=== PATIENT | female | born 1985 | race Caucasian/White ===

== ENCOUNTER 2018-09-04 15:54 | Emergency (ER) | payer OTHER ==
--- NOTE | 2018-09-04 16:42 | EDPHY ---
H & P Stated Complaint: LLQ and left side pain intermittent since 0100 with nausea Time Seen by Provider: 09/04/18 16:42 HPI/ROS: CHIEF COMPLAINT: Chest pain, back pain HISTORY OF PRESENT ILLNESS: The patient is a 33 y/o female complaining of recurrent episodes of chest and back pain over the last few days that became severe today. She says, "I've been having what I thought was on and off chest pain through to my back." She attributed her symptoms initially to stress related to the recent of a close friend. She saw her PCP who thought symptoms could be gas, constipation, or a muscle spasm so the patient took "prune juice to flush my system." She woke at 01:00 this morning, about 16 hours ago, with the same pain but now severe. She tried treating with icy hot, ibuprofen, positional changes like lying supine or in the position, and stretching in a hot shower. Her pain is much worse with movement. Throughout the day her pain has waxed and waned and been associated with severe waves of nausea and abdominal cramping with the urge to defecate. She had one small bowel movement at noon that was not loose nor bloody. Her last normal bowel movement was yesterday morning and she denies feeling constipated. She notes she 's been eating and drinking less over the last few days. No urinary symptoms. At times when the pain was most severe, she had to lie on her office floor for extended periods of time and at other times "standing up is just insufferable." She currently feels shaky. She reports a similar transient episode 1 or 2 years ago that was short-lived and she never sought evaluation for. Her last menstrual period was 3 weeks ago and is usually normal. She is sexually active, not on control, and identifies as escudero. REVIEW OF SYSTEMS: A ten system review of systems was performed and is negative with the exception of the items mentioned in the HPI. Past medical history: Environmental allergies Past surgical history: Endoscopy for acid reflux (has since resolved) Family history: Noncontributory Social history: Elementary school counselor, previously a teacher. Moved here in June from [place]. Identifies as escudero. Nonsmoker. Very rare alcohol use. General Appearance: Alert. Vital signs reviewed. Blood pressure 135/90. Eyes: Pupils equal and round, no conjunctival injection, no discharge. Anicteric. ENT, Mouth: Mucous membranes are moist, no oropharyngeal erythema or edema. Neck: No lymphadenopathy, supple. Respiratory: Lungs are clear to auscultation; no wheezes, rales, or rhonchi. Cardiovascular: Regular rate and rhythm; no murmur, rub, or gallop. Gastrointestinal: Abdomen is soft, LLQ tenderness, no masses or organomegaly. Skin: Warm and dry, no rashes on exposed skin, normal color. Back: Nontender to palpation over the thoracolumbar spine. Left lower flank tenderness. Extremities: No lower extremity edema, no calf tenderness or swelling. Neurological: Alert and oriented. Moving all four extremities easily and equally. Psychiatric: Normal affect. - Personal History LMP (Females 10-55): 22-28 Days Ago Current Tetanus Diphtheria and Acellular Pertussis (TDAP): Yes - Medical/Surgical History Hx Asthma: Yes Hx Chronic Respiratory Disease: No Hx Diabetes: No Hx Cardiac Disease: No Hx Renal Disease: No Hx Cirrhosis: No Hx Alcoholism: No Hx HIV/AIDS: No Hx Splenectomy or Spleen Trauma: No Other PMH: asthma - Social History Smoking Status: Never smoked Constitutional: Initial Vital Signs Temperature (C) 36.7 C 09/04/18 16:07 Heart Rate 83 09/04/18 16:07 Respiratory Rate 16 09/04/18 16:07 Blood Pressure 145/90 H 09/04/18 16:07 O2 Sat (%) 99 09/04/18 16:07 O2 Delivery Mode Room Air Allergies/Adverse Reactions: azithromycin Allergy (Verified 09/04/18 16:06) Home Medications: Medication Instructions Recorded Claritin 09/04/18 oxyCODONE/APAP 5/325 [Percocet 1 - 2 tab PO Q4H PRN #15 tab 09/04/18 5/325 (RX)] Medical Decision Making - Diagnostics Imaging: Discussed imaging studies w/ call center assistant Radiologist, I viewed and interpreted images myself ED Course/Re-evaluation: Patient with left lower abdomen and left flank pain. Differential diagnosis includes ureterolithiasis, UTI, pyelonephritis, diverticulitis, muscular pain. CBC, chemistries, and UA are within normal limits. Urinalysis shows ketones, no blood or signs of infection. This rules out UTI and pyelonephritis. Patient received Toradol 15 mg IV. She did have some pain relief with this medication. I spoke with her about the blood work and urinalysis. She would like to undergo CT scanning of her abdomen and pelvis to assess for kidney stone. This test has been ordered. CT shows 6.3x5.7 left adnexal dermoid. Pelvic US ordered to rule out torsion Reassessed patient and discussed findings. She had some improvement in pain, but continues to be uncomfortable. Additional 15mg IV Toradol ordered. Pelvic US: negative for torsion, left dermoid tumor. 2006: Consulted with CB Castañeda. She will see her as an outpatient Friday or Friday. Reassessed patient and discussed findings. She will be discharged with script for Percocet and standard care and follow up instructions. Return precautions discussed. She is comfortable with this plan. Differential Diagnosis: I considered a ddx that includes but is not limited to ovarian torsion, ovarian cyst, dermoid, ectopic , UTI, pyelonephritis, ureteral stone, diverticulitis, constipation. - Data Points Laboratory Results: Laboratory Results 09/04/18 16:40 09/04/18 16:40 Medications Given: Discontinued Medications Sodium Chloride (Ns) 1,000 mls @ 0 mls/hr IV EDNOW ONE; Wide Open PRN Reason: Protocol Stop: 09/04/18 17:22 Last Admin: 09/04/18 17:21 Dose: 1,000 mls Ketorolac Tromethamine (Toradol) 15 mg IVP EDNOW ONE Stop: 09/04/18 17:22 Last Admin: 09/04/18 17:40 Dose: 15 mg Ketorolac Tromethamine (Toradol) 15 mg IVP EDNOW ONE Stop: 09/04/18 18:51 Last Admin: 09/04/18 18:57 Dose: 15 mg Departure - Departure Disposition: Home, Routine, Self-Care Clinical Impression: Dermoid cyst Condition: Good Instructions: Cyst (ED) Additional Instructions: 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 Follow up with CB Castañeda, early next week. I recommend calling first thing Friday morning to schedule this appointment. Tell them you were seen in the ED today and Dr. Walker was consulted. Return to the ED for any worsening of condition. Use Tylenol and ibuprofen as directed below as needed for pain. You received a medication similar to ibuprofen today in the ED, so you should wait to take another dose until tomorrow. Do not combine Tylenol with Perocet as Percocet contains the active ingredient of Tylenol (acetaminophen). Use Percocet as needed for severe pain. This medication can make you drowsy and constipated. Do not use prior to driving. Take constipation precautions while using it (increase fluid and fiber intake, use Miralax as directed on packaging if needed). Adult Pain & Fever Control: We recommend Acetaminophen (Tylenol) and Ibuprofen (Motrin,Advil) for pain and fever control. When fever is high or pain severe, both drugs can be used at the same time, but at different intervals. Please note the time differences. Your dose is: Acetaminophen 650mg every 4 to 6 hours Ibuprofen 600mg every 8 hours with food Note: do not take Acetaminophen with Hydrocodone (Vicodin, Lortab) or Oxycodone (Percocet). These medications also contain Acetaminophen. No more than 3000mg of Acetaminophen should be taken in 24 hours (for an adult). Referrals: Arabella Shelton MD [Primary Care Provider] - As per Instructions Pratibha Walker DO [Doctor of Osteopathy] - As per Instructions Prescriptions: oxyCODONE/APAP 5/325 [Percocet 5/325 (RX)] 1 - 2 tab PO Q4H PRN #15 tab PRN Reason: Pain, Severe Report Scribed for: Anni Eldridge Report Scribed by: Abril Mckeon Date of Report: 09/04/18 Time of Report: 18:48 Physician Review and Approval Statement: 09/04/18 16:42 Portions of this note were transcribed by the medical delivery driver. I, Dr. Anni Eldridge, personally performed the history, physical exam, and medical decision- making; and confirmed the accuracy of the information in the transcribed note.
[2018-09-04] MEDS ORDERED: KETOROLAC 30 MG/1 ML SDV IVP ONE ×2 (17:21→18:50)
[2018-09-04] MEDS ORDERED: NS 1,000 ML IV ONE (17:21)
[2018-09-04 17:27] LABS: PLATELET COUNT 427 10^3/uL (150-400)
[2018-09-04] MEDS ORDERED: IOPAMIDOL (ISOVUE-300) 100 ML BTL ONE (18:13)
[2018-09-04 20:30] VITALS: BP 129/76
== END 2018-09-04 20:28 | disposition home or self-care (01) ==
DX: R19.09 Other intra-abdominal and pelvic swelling, mass and lump (principal); E86.9 Volume depletion, unspecified; J45.909 Unspecified asthma, uncomplicated
CPT/HCPCS: 96374; J1885; Q9967

== ENCOUNTER 2018-09-10 12:00 | Observation (INO) | payer OTHER ==
--- NOTE | 2018-09-08 13:54 | PDGENHP ---
History & Physical Chief Complaint: Left adnexal mass, likely dermoid, intermittent torsion History of Present Illness: Sumi is a 33 yo who I saw in the office for ER f/u after presenting with intermittent acute excruciating LLQ and left flank pain. Found to have 6-7cm left adnexal mass on CT and US consistent with dermoid. Pain resolved by the time we met in office. Discussed options, prefers surgical removal - which I'd agree with. Pertinent Past, Social, Family History: No other abdominal surgeries. Relevant Physical Exam: NAD, pleasant, conversant. Assessment and Plan Assessment: Preop: DxLS, unilateral ovarian cystectomy, possible unilateral salpingo- oophorectomy. For suspected left dermoid, 7cm. - Routine preop orders. - RBA discussed in clinic, consents will be signed in person in preop day of surgery. - Discussed possibility of spillage of cyst material but will try to avoid this. Discussed possibly needing to remove compromised left ovary along with cyst, but will try to avoid this. - Likely home same day, but will be 23 hrs obs so could stay overnight if needed. DIANNA
[2018-09-10] MEDS ORDERED: LIDOCAINE 1% 2 ML INJ ID PRN (15:45)
[2018-09-10] MEDS ORDERED: LR 1,000 ML IV ONE (15:45)
[2018-09-10] MEDS ORDERED: PHENAZOPYRIDINE HCL 200 MG TAB PO ONE (15:45)
[2018-09-10] MEDS ORDERED: BUPIVACAINE 0.25% 30 ML SDV ONE (15:53)
[2018-09-10] MEDS ORDERED: SILVER NITRATE APPLICATOR 1 APPL TP ONE (15:53)
[2018-09-10] MEDS ORDERED: EPINEPHrine 1 MG/ML INJ ONE (15:53)
[2018-09-10] MEDS ORDERED: MIDAZOLAM 2 MG/2 ML VIAL ONE (16:28)
[2018-09-10] MEDS ORDERED: MIDAZOLAM 2 MG/2 ML VIAL IVP ONE (16:29)
[2018-09-10] MEDS ORDERED: fentaNYL 100 MCG/2 ML INJ ONE ×4 (16:30→18:58)
[2018-09-10] MEDS ORDERED: LIDOCAINE 2% 5 ML SDV ONE (16:30)
[2018-09-10] MEDS ORDERED: PROPOFOL 200 MG/20 ML VIAL ONE (16:30)
[2018-09-10] MEDS ORDERED: ROCURONIUM 50 MG/5 ML VIAL ONE (16:32)
--- NOTE | 2018-09-10 16:34 | PDHPUP ---
History & Physical Update H&P update statement: This history and physical update is based on an assessment of the patient which was completed after admission or registration (within 24 hours), but prior to the surgery/procedure. H&P update: H&P reviewed & patient examined, no change in patient's condition since H&P completed
--- NOTE | 2018-09-10 17:38 | PDANEPAE ---
ANE History of Present Illness dermoid cyst ANE Past Medical History - Cardiovascular History Hx Hypertension: No Hx Arrhythmias: No Hx Chest Pain: No Hx Coronary Artery / Peripheral Vascular Disease: No Hx CHF / Valvular Disease: No Hx Palpitations: No - Pulmonary History Hx COPD: No Hx Asthma/Reactive Airway Disease: Yes Hx Recent Upper Respiratory Infection: No Hx Oxygen in Use at Home: No Hx Sleep Apnea: No Sleep Apnea Screening Result - Last Documented: Negative - Neurologic History Hx Cerebrovascular Accident: No Hx Seizures: No Hx Dementia: No - Endocrine History Hx Diabetes: No Hypothyroid: No - Renal History Hx Renal Disorders: No - Liver History Hx Hepatic Disorders: No - Neurological & Psychiatric Hx Hx Neurological and Psychiatric Disorders: No - Cancer History Hx Cancer: No Cancer History Comment: pre-cancerous cells removed from face - GI History Hx Gastrointestinal Disorders: Yes Gastrointestinal History Comment: Hx of H. Pylori, had reflux with but none since has resolved - Other Health History Other Health History: wears glasses. hearing loss in right ear. has pain left lower back r/t cyst - Chronic Pain History Chronic Pain: No - Surgical History Prior Surgeries: EGD ANE Review of Systems Review of Systems: - Exercise capacity Exercise capacity: >=4 METS METS (RN): 4 METS ANE Patient History - Allergies Allergies/Adverse Reactions: azithromycin Allergy (Verified 09/08/18 16:08) stomach cramping - Home Medications Home Medications: Claritin 09/04/18 [Last Taken Unknown] - NPO status NPO Since - Liquids (Date): 09/10/18 NPO Since - Liquids (Time): 11:00 NPO Since - Solids (Date): 09/10/18 NPO Since - Solids (Time): 07:30 - Smoking Hx Smoking Status: Never smoked - Family Anes Hx Family Hx Anesthesia Complications: mother with severe nausea ANE Labs/Vital Signs - Vital Signs Blood Pressure: 116/78 Heart Rate: 78 Respiratory Rate: 16 O2 Sat (%): 97 Height: 182.88 cm Weight: 97.522 kg ANE Physical Exam - Airway Neck exam: FROM Mallampati Score: Class 1 Mouth exam: normal dental/mouth exam - Pulmonary Pulmonary: no respiratory distress - Cardiovascular Cardiovascular: regular rate and rhythym - ASA Status ASA Status: II ANE Anesthesia Plan Anesthesia Plan: general endotracheal anesthesia
[2018-09-10] MEDS ORDERED: PHENYLEPHRINE HCL 100 MCG/ML SYR ONE (17:58)
--- NOTE | 2018-09-10 18:36 | POSTOPPROG ---
Post Op Note Date of Operation: 09/10/18 Surgeon: Dimitri Jordan
[2018-09-10] MEDS ORDERED: ONDANSETRON DISINTEGRATING 4 MG TAB PO PRN (18:37)
[2018-09-10] MEDS ORDERED: KETOROLAC 30 MG/1 ML SDV IVP ONE (18:37)
[2018-09-10] MEDS ORDERED: TEMAZEPAM 15 MG CAP PO PRN (18:37)
[2018-09-10] MEDS ORDERED: ZOLPIDEM TARTRATE 5 MG TAB PO PRN (18:37)
[2018-09-10] MEDS ORDERED: ACETAMINOPHEN 500 MG TAB PO PRN (18:40)
[2018-09-10] MEDS ORDERED: MEPERIDINE 25 MG/0.5 ML AMP IVP PRN (18:40)
[2018-09-10] MEDS ORDERED: NALOXONE HCL 0.4 MG/ML INJ IVP PRN (18:40)
[2018-09-10] MEDS ORDERED: LR 500 ML IV PRN (18:40)
[2018-09-10] MEDS ORDERED: LABETALOL HCL 5 MG/ML 20 ML MDV IVP PRN (18:40)
[2018-09-10] MEDS ORDERED: METOCLOPRAMIDE 10 MG/2 ML VIAL IVP PRN (18:40)
[2018-09-10] MEDS ORDERED: oxyCODONE IR 5 MG TAB PO PRN (18:40)
[2018-09-10] MEDS ORDERED: ALBUTEROL 3 ML DEYVIAL IH PRN (18:40)
[2018-09-10] MEDS ORDERED: PROMETHAZINE HCL 25 MG/ML INJ IVP PRN (18:40)
[2018-09-10] MEDS ORDERED: HYDROmorphONE/DILAUDID 2 MG/ML INJ ONE (18:41)
[2018-09-10] MEDS: HYDROmorphONE/DILAUDID 2 MG/ML INJ IVP PRN ×5 (18:43→19:25)
[2018-09-10] MEDS ORDERED: D5W LR 1,000 ML IV SCH (18:45)
[2018-09-10] MEDS: fentaNYL 100 MCG/2 ML INJ IVP PRN ×4 (18:45→19:11)
--- NOTE | 2018-09-10 19:09 | POSTANESTH ---
Post Anesthetic Evaluation Cardiovascular Status: Normal, Stable Respiratory Status: Normal, Stable Level of Consciousness/Mental Status: Can Participate in Eval Pain Control: Adequate, Prn Tx Ordered Nausea/Vomiting Control: Adequate, Prn Tx Ordered Complications Possibly Related to Anesthesia: None Noted
[2018-09-10] MEDS ORDERED: ONDANSETRON 4 MG/2 ML VIAL ONE (19:33)
[2018-09-10] MEDS: ONDANSETRON 4 MG/2 ML VIAL IVP PRN ×2 (19:34→23:49)
[2018-09-10] MEDS: HYDROCODONE/APAP 5/325 TAB PO PRN (21:29)
[2018-09-11] MEDS: IBUPROFEN 600 MG TAB PO SCH ×2 (00:25→06:20)
[2018-09-11] MEDS: HYDROCODONE/APAP 5/325 TAB PO PRN ×2 (03:30→07:49)
[2018-09-11 07:41] VITALS: BP 98/56
== END 2018-09-11 11:26 | disposition home or self-care (01) ==
LOC: F3E 15:38 → FOB 20:00
PROVIDERS: ADMIT Obstetrics & Gynecology; ATTEND Obstetrics & Gynecology
PROC: 0UB14ZX Excision of Left Ovary, Percutaneous Endoscopic Approach, Diagnostic (ICD-10-PCS; principal; 2018-09-10 16:45)
DX: D27.1 Benign neoplasm of left ovary (principal)
CPT/HCPCS: 58662; G0378; J0171; J1170; J2250; J2370; J2405; J2704; J3010

== ENCOUNTER 2018-09-16 13:16 | Inpatient (IN) | payer OTHER ==
--- NOTE | 2018-09-16 13:30 | EDPHY ---
H & P Stated Complaint: Pt had ov cyst Sx 1wk [employer]ER, on Keflex yest for infection, pain and drainage Time Seen by Provider: 09/16/18 13:30 HPI/ROS: HPI: This is a 33-year-old female who presents with Chief Complaint: Pt had ov cyst Sx 1wk [employer], on Keflex yest for infection, pain and drainage Location: Abdomen Quality: Redness and purulent discharge Duration: Several days Signs and Symptoms: no fever, no nausea, no vomiting, no hematemesis, no blood in stool, + abdominal bloating, no diarrhea, no back pain, no urinary symptoms, no vaginal bleeding/discharge, no indigestion, no chest pain, no shortness of breath Timing: Worsening Severity: Moderate to severe Context: Patient was seen in this emergency room on 09/04/2018 and diagnosed with the 6-7 cm large adnexal dermoid cyst. On 09/10/18, Dr. Jordan removed the cyst. Seen by Dr. Jordan yesterday; wound culture obtained and started on Keflex. Patient reports that the redness and discharge continues to worsen. Denies fever, diarrhea, nausea, vomiting, chills. Reports decreased appetite and poor oral intake. Modifying Factors: See above Comment: ROS: A comprehensive 10 system review of systems is otherwise negative aside from elements mentioned in the history of present illness. MEDICAL/SURGICAL/SOCIAL HISTORY: Medical history: asthma Surgical history: surgery for ovarian cyst 09/10/18 Social history: Nonsmoker. Family history noncontributory. CONSTITUTIONAL: Nontoxic but tearful pleasant adult white female, awake and alert, no obvious distress HEENT: Atraumatic and normocephalic, PERRL, EOMI. Nares patent; no rhinorrhea; no nasal mucosal edema. Tympanic membranes clear. Oropharynx clear, no exudate and moist pink mucosa. Airway patent. No lymphadenopathy. No meningismus. Cardiovascular: Normal S1/S2, regular rate, regular rhythm, without murmur rub or gallop. PULMONARY/CHEST: Symmetrical and nontender. Clear to auscultation bilaterally. Good air movement. No accessory muscle usage. ABDOMEN: Soft, mildly distended, periumbilical purulent greenish yellow discharge noted with surrounding erythema/warm/tenderness to palpation. no rebound, no guarding, no peritoneal signs, no masses or organomegaly. No CVAT. EXTREMITIES: 2/2 pulses, strength 5/5, no deformities, no clubbing, no cyanosis or edema. NEUROLOGICAL: no focal neuro deficits. GCS 15. SKIN: Warm and dry, no erythema. no rash. Good capillary refill. Source: Patient Exam Limitations: No limitations - Personal History Current Tetanus/Diphtheria Vaccine: Yes - Medical/Surgical History Hx Asthma: Yes Hx Chronic Respiratory Disease: No Hx Diabetes: No Hx Cardiac Disease: No Hx Renal Disease: No Hx Cirrhosis: No Hx Alcoholism: No Hx HIV/AIDS: No Hx Splenectomy or Spleen Trauma: No Other PMH: asthma, surgery for ovarian cyst 09/10/18 - Social History Smoking Status: Never smoked Constitutional: Initial Vital Signs Temperature (C) 37.0 C 09/16/18 13:21 Heart Rate 108 H 09/16/18 13:21 Respiratory Rate 18 09/16/18 13:21 Blood Pressure 109/74 09/16/18 13:21 O2 Sat (%) 97 09/16/18 13:21 O2 Delivery Mode Room Air Allergies/Adverse Reactions: azithromycin Allergy (Verified 09/16/18 13:21) stomach cramping Home Medications: Medication Instructions Recorded Acetaminophen [Tylenol ES 500 mg 500 mg PO DAILY PRN 09/16/18 (*)] Albuterol [Proventil Inhaler HFA 1 puffs IH DAILY PRN 09/16/18 (*)] Cephalexin [Keflex (*)] 500 mg PO QID 09/16/18 Hydrocodone/APAP 5/325 [[place] 1 tab PO Q4HRS PRN 09/16/18 5/325 (*)] Ibuprofen [Motrin (*)] 600 mg PO DAILY PRN 09/16/18 Medical Decision Making - Diagnostics Imaging Results: Imaging Impressions Abdomen CT 09/16/18 13:37 Impression: 1. Complex abscess collection in a retro umbilical location extending through the abdominis rectus muscle just to the right of midline to the deep fascial level 2. Interval resection of her more tumor left adnexal region. There is residual hypodense soft tissue in this region that could represent residual left ovarian tissue and/or hematoma. Findings discussed with Ju Alvarado PAC at 15:02 hour, 09/16/2018. ED Course/Re-evaluation: Vital signs reviewed and show tachycardia. IV access, laboratory studies, blood culture, lactic acid, CT abdomen and pelvis scan ordered Given 2 L normal saline and IV Zosyn 4.5 g after speaking with attending. 1415: Labs reviewed. WBC 16 K, lactic acid 1.0 1500: Called by radiologist, Dr. Rodriguez, who reports there are to pelvic abscess collections measuring up to 5 cm that extend into the fascia. Complex abscess collection in a retro umbilical location extending through the abdominis rectus muscle just to the right of midline to the deep fascial level 1505: Notified by RN that patient complaining of nausea. IV promethazine 12.5 mg given 1510: ED decision to consult for admission. Spoke with Dr. Lebron as Dr. Jordan is off today and who kindly agrees to admit patient and provide further care. This patient was seen under the supervision of my secondary supervising physician. I evaluated care for this patient independently. Discussed this patient with Dr. Ferrara. Differential Diagnosis: Differential diagnosis includes but is not limited to abdominal wall cellulitis , pelvic abscess, incision site abscess. - Data Points Laboratory Results: Laboratory Results 09/16/18 13:46 09/16/18 13:46 09/16/18 09/16/18 09/16/18 14:09 13:46 13:46 WBC 16.09 10^3/uL H 10^3/uL (3.80-9.50) RBC 4.48 10^6/uL 10^6/uL (4.18-5.33) Hgb 12.5 g/dL L g/dL (12.6-16.3) POC Hgb 12.9 gm/dL gm/dL (12.6-16.3) Hct 37.1 % L % (38.0-47.0) POC Hct 38 % % (38-47) MCV 82.8 fL fL (81.5-99.8) MCH 27.9 pg pg (27.9-34.1) MCHC 33.7 g/dL g/dL (32.4-36.7) RDW 13.6 % % (11.5-15.2) Plt Count 434 10^3/uL H 10^3/uL (150-400) MPV 8.7 fL fL (8.7-11.7) Neut % (Auto) Not Reported Lymph % (Auto) Not Reported Millard % (Auto) Not Reported Eos % (Auto) Not Reported Baso % (Auto) Not Reported Nucleat RBC Rel Count Not Reported Absolute Neuts (auto) Not Reported Absolute Lymphs (auto) Not Reported Absolute Monos (auto) Not Reported Absolute Eos (auto) Not Reported Absolute Basos (auto) Not Reported Absolute Nucleated RBC Not Reported Immature Gran % Not Reported Seg Neutrophils % 84.8 % % Band Neutrophils % 2.0 % % Lymphocytes % 6.1 % % Monocytes % 5.1 % % Eosinophils % 1.0 % % Basophils % 1.0 % % Metamyelocytes % 0.0 % % Myelocytes % 0.0 % % Promyelocytes % 0.0 % % Blast Cells % 0.0 % % Immature Gran # Not Reported Absolute Seg Neuts 13.64 10^3/uL H 10^3/uL (1.70-6.50) Absolute Band Neuts 0.32 10^3/uL 10^3/uL (0.00-0.70) Absolute Lymphocytes 0.98 10^3/uL L 10^3/uL (1.00-3.00) Absolute Monocytes 0.82 10^3/uL H 10^3/uL (0.30-0.80) Absolute Eosinophils 0.16 10^3/uL 10^3/uL (0.03-0.40) Absolute Basophils 0.16 10^3/uL H 10^3/uL (0.02-0.10) Absolute Metamyelocyte 0.00 10^3/mL 10^3/mL (0.00-0.00) Absolute Myelocytes 0.00 10^3/mL 10^3/mL (0.00-0.00) Absolute Promyelocytes 0.00 10^3/uL 10^3/uL (0.00-0.00) Absolute Plasma Cells 0.00 10^3/uL 10^3/uL (0.00-0.00) Nucleated RBCs 0 /100 WBC /100 WBC (0-0) RBC/WBC/PLT Morphology NORMAL (NORMAL) Absolute Blast Cells 0.00 10^3/uL 10^3/uL (0.00-0.00) Plasma Cells % 0.0 % % Platelet Estimate ADEQUATE (ADEQ) VBG Lactic Acid 1.0 mmol/L mmol/L (0.7-2.1) POC Sodium 138 mEq/L mEq/L (135-145) Sodium POC Potassium 3.6 mEq/L mEq/L (3.3-5.0) Potassium POC Chloride 102 mEq/L mEq/L (97-110) Chloride Carbon Dioxide Anion Gap POC BUN 9 mg/dL mg/dL (7-23) BUN Creatinine POC Creatinine 0.6 mg/dL mg/dL (0.6-1.0) Estimated GFR Glucose POC Glucose 93 mg/dL mg/dL (70-100) Calcium Total Bilirubin Conjugated Bilirubin Unconjugated Bilirubin AST ALT Alkaline Phosphatase Total Protein Albumin 09/16/18 13:46 WBC RBC Hgb POC Hgb Hct POC Hct MCV MCH MCHC RDW Plt Count MPV Neut % (Auto) Lymph % (Auto) Millard % (Auto) Eos % (Auto) Baso % (Auto) Nucleat RBC Rel Count Absolute Neuts (auto) Absolute Lymphs (auto) Absolute Monos (auto) Absolute Eos (auto) Absolute Basos (auto) Absolute Nucleated RBC Immature Gran % Seg Neutrophils % Band Neutrophils % Lymphocytes % Monocytes % Eosinophils % Basophils % Metamyelocytes % Myelocytes % Promyelocytes % Blast Cells % Immature Gran # Absolute Seg Neuts Absolute Band Neuts Absolute Lymphocytes Absolute Monocytes Absolute Eosinophils Absolute Basophils Absolute Metamyelocyte Absolute Myelocytes Absolute Promyelocytes Absolute Plasma Cells Nucleated RBCs RBC/WBC/PLT Morphology Absolute Blast Cells Plasma Cells % Platelet Estimate VBG Lactic Acid POC Sodium Sodium 137 mEq/L mEq/L (135-145) POC Potassium Potassium 4.1 mEq/L mEq/L (3.3-5.0) POC Chloride Chloride 101 mEq/L mEq/L (97-110) Carbon Dioxide 23 mEq/l mEq/l (22-31) Anion Gap 13 mEq/L mEq/L (6-14) POC BUN BUN 10 mg/dL mg/dL (7-23) Creatinine 0.7 mg/dL mg/dL (0.6-1.0) POC Creatinine Estimated GFR > 60 Glucose 95 mg/dL mg/dL (70-100) POC Glucose Calcium 9.9 mg/dL mg/dL (8.5-10.4) Total Bilirubin 0.4 mg/dL mg/dL (0.1-1.4) Conjugated Bilirubin 0.2 mg/dL mg/dL (0.0-0.5) Unconjugated Bilirubin 0.2 mg/dL mg/dL (0.0-1.1) AST 93 IU/L H IU/L (14-46) ALT 136 IU/L H IU/L (9-52) Alkaline Phosphatase 110 IU/L IU/L (38-126) Total Protein 7.3 g/dL g/dL (6.3-8.2) Albumin 4.1 g/dL g/dL (3.5-5.0) Medications Given: Discontinued Medications Sodium Chloride (Ns) 1,000 mls @ 0 mls/hr IV ONCE ONE; Wide Open PRN Reason: Protocol Stop: 09/16/18 13:37 Last Admin: 09/16/18 13:56 Dose: 1,000 mls Sodium Chloride (Ns) 1,000 mls @ 0 mls/hr IV ONCE ONE; Wide Open PRN Reason: Protocol Stop: 09/16/18 13:37 Last Admin: 09/16/18 13:57 Dose: 1,000 mls Piperacillin/Tazobactam/Dextrose (Zosyn (Premix)) 100 mls @ 200 mls/hr IV EDNOW ONE PRN Reason: Protocol Stop: 09/16/18 14:36 Last Admin: 09/16/18 14:54 Dose: 100 mls Promethazine HCl (Phenergan) 12.5 mg IVP ONCE ONE Stop: 09/16/18 15:12 Last Admin: 09/16/18 15:13 Dose: 12.5 mg Point of Care Test Results: Chemistry 09/16/18 14:09 POC Sodium 138 mEq/L mEq/L (135-145) POC Potassium 3.6 mEq/L mEq/L (3.3-5.0) POC Chloride 102 mEq/L mEq/L (97-110) POC BUN 9 mg/dL mg/dL (7-23) POC Creatinine 0.6 mg/dL mg/dL (0.6-1.0) POC Glucose 93 mg/dL mg/dL (70-100) ISTAT H&H 09/16/18 14:09 POC Hgb 12.9 gm/dL gm/dL (12.6-16.3) POC Hct 38 % % (38-47) Departure - Departure Disposition: [facility] Acute Clinical Impression: Pelvic abscess in female Condition: Fair
[2018-09-16] MEDS ORDERED: NS 1,000 ML IV ONE ×2 (13:36)
[2018-09-16 14:04] LABS: PLATELET COUNT 434 10^3/uL (150-400)
[2018-09-16] MEDS ORDERED: PIPERACILLIN/TAZO 4.5 GM/DEX 100 ML IV ONE (14:07)
[2018-09-16] MEDS ORDERED: IOPAMIDOL (ISOVUE-300) 100 ML BTL ONE (14:13)
[2018-09-16] MEDS ORDERED: PROMETHAZINE HCL 25 MG/ML INJ ONE (15:00)
[2018-09-16] MEDS ORDERED: PROMETHAZINE HCL 25 MG/ML INJ IVP ONE (15:11)
[2018-09-16] MEDS ORDERED: ACETAMINOPHEN 325 MG TAB PO PRN (17:11)
[2018-09-16] MEDS ORDERED: ONDANSETRON 4 MG/2 ML VIAL IVP PRN ×2 (17:11→20:48)
[2018-09-16] MEDS ORDERED: ONDANSETRON DISINTEGRATING 4 MG TAB PO PRN (17:11)
[2018-09-16] MEDS ORDERED: PROMETHAZINE HCL 25 MG/ML INJ IVP PRN (17:21)
[2018-09-16] MEDS ORDERED: oxyCODONE IR 5 MG TAB PO PRN ×2 (17:21→20:48)
[2018-09-16] MEDS ORDERED: ALBUTEROL 60 PUFFS/8 GM MDI IH PRN (17:43)
--- NOTE | 2018-09-16 17:58 | GCON ---
REFERRING PHYSICIAN: Shelley Lebron MD REASON FOR CONSULTATION: Wound infection. HISTORY: The patient is a 33-year-old white female who has had removal of an ovarian cyst on the 8th of this month. It was a large cyst, which required an extension of the incision. Apparently on removing the cyst, there was a bit of a spill of material. This was well cleaned up. The incision had been extended to allow delivery. The patient went home and was not very active for the first 5 days. She has been eating and moving her bowels. She did not get up and walk around much at all. She did use ice on the wound. She noted increasing redness yesterday and was seen in the office. She was started on Keflex. Today, there was an exuberant drainage from the umbilical wound site. A CT scan shows an abscess in the infra umbilical port site, which may extend in the right rectus sheath. Her white count is elevated at 16,000 with 84 segs and 2% bands. She has been afebrile. Her blood pressure has been in the 110s over 70s, with a heart rate initially in the 108 range, now down to 79. The erythema noted in the office yesterday was delineated by a blue marking pen. Today, the erythema has extended beyond that site. She has received Zosyn in the ER. The CT shows scattered small intraperitoneal air collections but no fluid collections. This is not unexpected given a laparoscopic procedure 6 days ago. I do not suspect bowel injury. I will plan to take her to the operating room for exploration, debridement, and probable wound VAC placement. I doubt that I will need to explore her abdomen at this time. She did have part of [employer] sandwich, chips, and tea at approximately noon today. In reviewing her history, she does have a history of asthma. She is a nonsmoker. REVIEW OF SYSTEMS: Otherwise quite negative. PHYSICAL EXAMINATION: GENERAL: She is awake, alert, and quite pleasant. NEUROLOGIC: There are no focal or lateralizing neurologic findings. LUNGS: Clear to auscultation with good air exchange, and most importantly, no wheezing. CARDIAC: Shows S1, S2 to be normal. Regular rate and rhythm. ABDOMEN: Shows an area of erythema extending approximately 4 inches from the umbilicus laterally and inferiorly. There is a purulent, green-yellow drainage coming from the umbilicus. There are no peritoneal findings. There are hypoactive bowel sounds. the abdomen is soft. IMPRESSION: Wound infection that may or may not extend into the right rectus sheath. I will plan to take her to the operating room as soon as an operating room is available (probably 8 o'clock). I will explore the wound and consider wound VAC placement. /[id number]/MODL MTDD
[2018-09-16] MEDS: NS 1,000 ML IV SCH ×2 (18:21→23:18)
[2018-09-16] MEDS ORDERED: BACITRACIN 50,000 UNITS/10 ML SYR IRR ONE (19:38)
[2018-09-16] MEDS ORDERED: BUPIVACAINE 0.5% 30 ML SDV ONE ×2 (19:38→19:44)
[2018-09-16] MEDS ORDERED: POLYMYXIN B SULFATE 500,000 UNIT/10 ML SYR IRR ONE (19:38)
--- NOTE | 2018-09-16 19:48 | PDANEPAE ---
ANE History of Present Illness 32 yo for I&D abd wound ANE Past Medical History - Cardiovascular History Hx Hypertension: No Hx Arrhythmias: No Hx Chest Pain: No Hx Coronary Artery / Peripheral Vascular Disease: No Hx CHF / Valvular Disease: No Hx Palpitations: No - Pulmonary History Hx COPD: No Hx Asthma/Reactive Airway Disease: Yes Hx Recent Upper Respiratory Infection: No Hx Oxygen in Use at Home: No Hx Sleep Apnea: No Sleep Apnea Screening Result - Last Documented: Negative - Neurologic History Hx Cerebrovascular Accident: No Hx Seizures: No Hx Dementia: No - Endocrine History Hx Diabetes: No - Renal History Hx Renal Disorders: No - Liver History Hx Hepatic Disorders: No - Neurological & Psychiatric Hx Hx Neurological and Psychiatric Disorders: No - Cancer History Hx Cancer: No Cancer History Comment: pre-cancerous cells removed from face - GI History Hx Gastrointestinal Disorders: Yes Gastrointestinal History Comment: Hx of H. Pylori, had reflux with but none since has resolved - Other Health History Other Health History: wears glasses. hearing loss in right ear. has pain left lower back r/t cyst - Chronic Pain History Chronic Pain: No - Surgical History Prior Surgeries: EGD ANE Review of Systems Review of Systems: - Exercise capacity METS (RN): 4 METS ANE Patient History - Allergies Allergies/Adverse Reactions: azithromycin Allergy (Verified 09/16/18 13:21) stomach cramping - Home Medications Home Medications: Acetaminophen [Tylenol ES 500 mg (*)] 500 mg PO DAILY PRN 09/16/18 [Last Taken Unknown] Albuterol [Proventil Inhaler HFA (*)] 1 puffs IH DAILY PRN 09/16/18 [Last Taken Unknown] Cephalexin [Keflex (*)] 500 mg PO QID 09/16/18 [Last Taken 09/16/18 12:00] Hydrocodone/APAP 5/325 [[place] 5/325 (*)] 1 tab PO Q4HRS PRN 09/16/18 [Last Taken 09/16/18 12:00] Ibuprofen [Motrin (*)] 600 mg PO DAILY PRN 09/16/18 [Last Taken 09/16/18 12:00] - NPO status NPO Since - Liquids (Date): 09/16/18 NPO Since - Liquids (Time): 12:00 NPO Since - Solids (Date): 09/16/18 NPO Since - Solids (Time): 12:00 - Smoking Hx Smoking Status: Never smoked - Family Anes Hx Family Hx Anesthesia Complications: mother with severe nausea ANE Labs/Vital Signs - Labs Result Diagrams: 09/16/18 13:46 09/16/18 13:46 - Vital Signs Blood Pressure: 117/73 Heart Rate: 79 Respiratory Rate: 20 O2 Sat (%): 99 Height: 6 ft Weight: 97.522 kg ANE Physical Exam - Airway Neck exam: FROM Mallampati Score: Class 2 Mouth exam: normal dental/mouth exam - Pulmonary Pulmonary: no respiratory distress - Cardiovascular Cardiovascular: regular rate and rhythym - ASA Status ASA Status: II ANE Anesthesia Plan Anesthesia Plan: general endotracheal anesthesia
[2018-09-16] MEDS ORDERED: REMIFENTANIL HCL 1 MG VIAL ONE (19:54)
[2018-09-16] MEDS ORDERED: fentaNYL 100 MCG/2 ML INJ ONE ×2 (19:54→21:12)
--- NOTE | 2018-09-16 19:54 | GHP ---
DATE OF ADMISSION: 09/16/2018 HISTORY UPON ADMISSION: The patient is a 33-year-old white female who presents for abdominal infection with purulent drainage at the umbilical site from her laparoscopic surgery on September 10. The patient had surgery with Dr. Dimitri Jordan for a dermoid cystectomy. The patient noticed on Friday that she started to have increased tenderness around the umbilical site and began having more redness. She was seen by Dr. Jordan yesterday at which time she did have erythema at the surface and this was marked. She was having slight drainage and had reported a fever of 101 degrees. A culture was performed of the drainage and the patient was placed on Keflex antibiotics. The patient reports the drainage significantly increased in the early hours this morning and was pouring serous drainage from the umbilical incision midday today. The patient presented to the emergency room for evaluation. The patient denies any further fevers. She reports that her appetite has been off and she really has not eaten much over the last several days. She has been using Perkins regularly since the surgery. She has been using a stool softener, however, has had regular bowel movements until her p.o. intake dropped down and reports no bowel movement since 09/13. The patient denies any bladder trouble and has been urinating fine. She has not had any abnormal vaginal discharge. In the emergency room, the patient had full blood cultures obtained and a CT scan performed. The CT scan reveals a significant complex abscess collection beneath the umbilicus extending through the abdominis rectus muscle just to the right of midline down to the deep fascia level. The size of the abscess is approximately 5 x 3 cm. PAST MEDICAL HISTORY: Asthma, mild GERD. PAST SURGICAL HISTORY: Surgery for dermoid ovarian cyst removed laparoscopically September 10, 2018. ALLERGIES: Azithromycin, causing stomach cramps. CURRENT MEDICATIONS: Perkins p.r.n. pain, stool softener, inhaler p.r.n., Keflex since yesterday. SOCIAL HISTORY: The patient is recently , has a supportive mother who has flown in to be here with her after surgery. The patient is a nonsmoker and denies any other drug use. REVIEW OF SYSTEMS: Negative other than what is noted up in the HPI. PHYSICAL EXAM: VITAL SIGNS: As noted upon admission, the patient's vital signs are normal, with blood pressure 100s over 70s, heart rate 79-108, temperature 36.7 up to 37.1. Pulse ox has been 97% and 99%. GENERAL: Patient is an obese white female who is in distress, with abdominal tightness, and lying prone on the bed. She is disturbed by the foul odor from the umbilical incision. ABDOMEN : Significant for erythema reaching approximately 1-2 inches outside of the previous marked line by Dr. Jordan. There is bruising around the trocar sites. There is not any active drainage from the umbilical site at this time, but there are soaked 4 x 4's over the incision with greenish, very foul smelling discharge. PELVIC: Vaginal exam is not performed. EXTREMITIES: Nontender. CAT scan report as noted above with a 5 x 3 cm complex abscess in the abdominis rectus muscle, with a deeper abscess collection limited to the deep fascia, without extension into the omentum or peritoneum. There are scattered gas bubbles noted. There is also a complex collection noted in the left adnexa with residual left ovarian tissue noted, with possibly a hematoma, without gas bubbles. There is no comment of free fluid. Laboratory reveals white count of 16 ,000, hemoglobin 12.5, hematocrit 37.1, platelets 434,000. There is a left shift noted. Chemistry values are normal, however, reveal an elevated AST at 93 and ALT at 136. ASSESSMENT: Postop umbilical abscesses noted 6 days status post laparoscopic removal of a dermoid. Patient is currently being seen by Dr. Kong of Surgery, who has reviewed the CAT scan and feels likely the patient needs surgical evaluation and drainage of the abscess with possible placement of a wound vacuum -assisted closure. This will necessitate opening the fascial closure and potentially returning to the operating room in 48-96 hours to close the fascia. PLAN: We will continue Zosyn IV, and the patient to remain n.p.o. until she is taken to the operating room. Wound care will be dictated by how the surgery goes and what the wound care team with Dr. Kong and Dr. Vargas advise. Wound culture performed yesterday does not reveal any specific bacteria at this time. Blood cultures x2 are pending. We will repeat CBC and metabolic panel in the morning and continue to follow. /[id number]/MODL and [id number]/MODL [facility]
[2018-09-16] MEDS ORDERED: PROPOFOL/EMULSION 500 MG/50 ML BOTTLE IV ONE (19:55)
[2018-09-16] MEDS ORDERED: ROCURONIUM 50 MG/5 ML VIAL ONE (19:58)
[2018-09-16] MEDS ORDERED: METOCLOPRAMIDE 10 MG/2 ML VIAL ONE (19:58)
[2018-09-16] MEDS ORDERED: DEXAMETHASONE 4 MG/ML VIAL ONE (19:58)
[2018-09-16] MEDS ORDERED: HYDROmorphONE/DILAUDID 1 MG/ML INJ IVP PRN (20:01)
[2018-09-16] MEDS ORDERED: SUGAMMADEX SODIUM 200 MG/2 ML VIAL IVP ONE (20:47)
[2018-09-16] MEDS ORDERED: ONDANSETRON 4 MG/2 ML VIAL ONE (20:47)
[2018-09-16] MEDS ORDERED: NALOXONE HCL 0.4 MG/ML INJ IVP PRN (20:48)
[2018-09-16] MEDS ORDERED: ALBUTEROL 3 ML DEYVIAL IH PRN (20:48)
[2018-09-16] MEDS ORDERED: fentaNYL 100 MCG/2 ML INJ IVP PRN (20:48)
[2018-09-16] MEDS ORDERED: MEPERIDINE 25 MG/0.5 ML AMP IVP PRN (20:48)
--- NOTE | 2018-09-16 21:08 | POSTOPPROG ---
Post Op Note Date of Operation: 09/16/18 Surgeon: Rakesh Kong Anesthesia: GET(General Endotracheal) Pre-op Diagnosis: wound infection extending to right rectus sheath Post-op Diagnosis: wound infection extending to right rectus sheath with fascial dehisence Indication: wound infection extending to right rectus sheath Procedure: wound exploration,culture, debridement and wound vac placement Findings: wound infection extending to right rectus sheath with fascial dehisence Inf/Abcess present in the surg proc area at time of surgery?: Yes Depth: Deep Incisional (Fascial) EBL: Minimal Total fluids administered: 1000 Complications: none Drains: Wound Vac Specimen(s): cultures
[2018-09-16] MEDS ORDERED: HYDROmorphONE/DILAUDID 2 MG/ML INJ ONE (21:12)
[2018-09-16] MEDS: HYDROmorphONE/DILAUDID 2 MG/ML INJ IVP PRN ×2 (21:15→21:29)
[2018-09-16] MEDS: PIPERACILLIN/TAZO 4.5 GM/DEX 100 ML IV SCH (23:18)
[2018-09-17] MEDS: ACETAMINOPHEN 500 MG TAB PO SCH ×3 (00:03→16:02)
[2018-09-17] MEDS: KETOROLAC 30 MG/1 ML SDV IVP SCH ×4 (03:10→21:02)
[2018-09-17] MEDS: PIPERACILLIN/TAZO 4.5 GM/DEX 100 ML IV SCH ×4 (05:46→17:49)
[2018-09-17 06:54] LABS: PLATELET COUNT 466 10^3/uL (150-400)
--- NOTE | 2018-09-17 08:01 | GOP ---
DATE OF OPERATION: 09/16/2018 SURGEON: Rakesh Kong MD PREOPERATIVE DIAGNOSIS: Wound infection extending to the right rectus sheath. POSTOPERATIVE DIAGNOSIS: Wound infection extending to the right rectus sheath with fascial dehiscence. PROCEDURE PERFORMED: Wound exploration, culture, debridement, and wound VAC placement. FINDINGS: Wound infection extending to the right rectus sheath with fascial dehiscence. Infection appears to be superficial and incisional. It does not appear to enter the abdominal space. SPECIMENS: A wound VAC drain is placed and cultures have been obtained. ESTIMATED BLOOD LOSS: Minimal. INDICATIONS: Wound infection extending to the right rectus sheath. DESCRIPTION OF PROCEDURE: The patient was placed on the operating room table in supine position. After induction of adequate general endotracheal anesthesia , the incision is carefully opened, and large amount of purulent material is expressed. Cultures obtained at this point. The abdomen is now prepped and draped. A surgical time-out is carried out and agreed to by all members of the operative team. My plan is to explore the wound. If there is evidence of peritoneal entrance, further abdominal exploration will be planned. The team understands the planned procedure, which proceeded as outlined. The vertical midline incision is extended. Gelpi retractors are used in a perpendicular manner. The wound is carefully debrided of necrotic material. A large amount of loose suture is removed. Using S retractors, the wound is explored. There appears to be an anterior rectus sheath opening. I believe the fascia is opened, but there appears to be adherent bowel just deep to it. I do not feel there is a free communication with the peritoneum at this time. Vigorous irrigation is carried out. Once I am sure the debridement has been complete, a wound VAC sponge is carefully trimmed. It is a 1.5 x 1.5 square column, which is approximately 5 inches long. This is carefully passed to the base of the wound. The abdomen is now carefully cleaned of all Betadine. Mastisol is placed. The wound VAC dressing is position. The wound VAC suction is connected. Good suction has been confirmed. The patient is transferred to recovery in stable and satisfactory condition. FLUIDS ADMINISTERED: 1000 cc. COMPLICATIONS: None. /[id number]/MODL MTDD
--- NOTE | 2018-09-17 08:22 | SOAPPROG ---
SIDRA Progress Note Assessment/Plan: Assessment: Appreciate General Surgery's involvement -- now POD1 s/p evacuation/debridement of umbilical subcutaneous abscess with apparent compromise of fascial stitches. I will continue to follow along. Subjective: Saw pt this AM with her mother - reported feeling so much better since the OR last evening. Belly pain almost completely resolved, no further fevers or chills since the OR. Vac in place with minimal purulent drainage. Objective: Vital Signs Temp Pulse Resp BP Pulse Ox 36.2 C 69 16 99/64 L 98 09/17/18 05:30 09/17/18 05:30 09/17/18 05:30 09/17/18 05:30 09/17/18 05:30 Microbiology 09/16/18 20:15 Gram Stain - Final Abdomen - Eswab Laboratory Results 09/17/18 05:45 09/17/18 05:45 09/16/18 09/17/18 09/18/18 05:59 05:59 05:59 Intake Total 1800 1300 Output Total 1305 500 Balance 495 800 Physical Exam - Physical Exam General Appearance: alert, no apparent distress Abdomen: non-tender, soft, other (Vac in place, erythema that had been widespread around umbilicus now essentially resolved), No distended ICD10 Worksheet Patient Problems: Problems Problem Status Onset Pelvic abscess in female Acute Dermoid cyst Acute
--- NOTE | 2018-09-17 09:09 | SOAPPROG ---
SOAP Progress Note Assessment/Plan: POD#1 09/17/2018 Assessment: Doing quite well. Minimal wound vac out put, VSS, WBC down, Gram stain - mainly Gram + cocci consistent with skin source not GI Erythema resolved. Hungry and eating. Note fascia is open. Duplex scan negative for DVT. Plan: Wound vac change tomorrow 09/17/18 09:10 Subjective: " I feel so much better!" Objective: Vital Signs Temp Pulse Resp BP Pulse Ox 36.2 C 69 16 99/64 L 98 09/17/18 05:30 09/17/18 05:30 09/17/18 05:30 09/17/18 05:30 09/17/18 05:30 Microbiology 09/16/18 20:15 Gram Stain - Final Abdomen - Eswab Laboratory Results 09/17/18 05:45 09/17/18 05:45 09/16/18 09/17/18 09/18/18 05:59 05:59 05:59 Intake Total 1800 1300 Output Total 1305 500 Balance 495 800 - Time Spent With Patient Time Spent With Patient: 15 - Pending Discharge Pending Discharge Within 24 Hours: No Pending Discharge Within 48 Hours: No Physical Exam - Physical Exam General Appearance: WD/WN, alert, no apparent distress Respiratory: chest non-tender, lungs clear, normal breath sounds Cardiac/Chest: regular rate, rhythm Abdomen: normal bowel sounds, non-tender, soft, other (No erythema, wound vac in place) Pelvic Exam: deferred Rectal: deferred Back: Normal inspection Skin: normal color, warm/dry Extremities: normal range of motion, non-tender Neuro/Psych: no motor/sensory deficits, alert, normal mood/affect, oriented x 3 ICD10 Worksheet Patient Problems: Problems Problem Status Onset Pelvic abscess in female Acute Dermoid cyst Acute
[2018-09-17] MEDS: ENOXAPARIN 40 MG/0.4 ML SYR SC SCH (11:29)
--- NOTE | 2018-09-17 18:04 | PDMN ---
Medical Necessity Medical necessity: MCG: M70 cellulitis wound abscess req I/D ,debridement, exploration, wound vac placement, wound infection extending to R rectus shealth. further tx needed IV abx, IVF, IV toradol, status changed to INPT for ongoing med nec care.
[2018-09-18] MEDS: ACETAMINOPHEN 500 MG TAB PO SCH ×3 (00:04→19:02)
[2018-09-18] MEDS: PIPERACILLIN/TAZO 4.5 GM/DEX 100 ML IV SCH ×4 (00:06→18:15)
[2018-09-18] MEDS: KETOROLAC 30 MG/1 ML SDV IVP SCH ×4 (03:09→19:03)
[2018-09-18 06:24] LABS: PLATELET COUNT 426 10^3/uL (150-400)
[2018-09-18] MEDS: ENOXAPARIN 40 MG/0.4 ML SYR SC SCH (09:32)
--- NOTE | 2018-09-18 09:36 | SOAPPROG ---
SOAP Progress Note Assessment/Plan: POD#1 09/17/2018 Assessment: Doing quite well. Minimal wound vac out put, VSS, WBC down, Gram stain - mainly Gram + cocci consistent with skin source not GI Erythema resolved. Hungry and eating. Note fascia is open. Duplex scan negative for DVT. Plan: Wound vac change tomorrow POD#2 09/18/18 08:56 Assessment: C/o fatigue last PM but otherwise no complaints. Afebrile, VSS, Eating and moving bowels. WBC up to 14K Abdomen soft, not distended,+ BS Plan: Change wound vac today in OR for optimal visualization. Doubt that I will wish to colse fascial defect today When cultures results available will adjust antibiotics Subjective: I'm doing well Objective: Vital Signs Temp Pulse Resp BP Pulse Ox 36.6 C 68 16 124/78 H 96 09/18/18 03:45 09/18/18 08:00 09/18/18 08:00 09/18/18 08:00 09/18/18 08:00 Laboratory Results 09/18/18 06:00 09/17/18 09/18/18 09/19/18 05:59 05:59 05:59 Intake Total 2600 Balance 2600 - Time Spent With Patient Time Spent With Patient: 15 - Pending Discharge Pending Discharge Within 24 Hours: No Pending Discharge Within 48 Hours: No Physical Exam - Physical Exam General Appearance: WD/WN, alert, no apparent distress Respiratory: chest non-tender, lungs clear, normal breath sounds Cardiac/Chest: regular rate, rhythm Abdomen: normal bowel sounds, non-tender, soft, other (wound vac in place) Pelvic Exam: deferred Rectal: deferred, black stool Skin: normal color, warm/dry Neuro/Psych: no motor/sensory deficits, alert, normal mood/affect, oriented x 3 ICD10 Worksheet Patient Problems: Problems Problem Status Onset Pelvic abscess in female Acute Dermoid cyst Acute
[2018-09-18] MEDS: NS 1,000 ML IV SCH (09:46)
--- NOTE | 2018-09-18 11:47 | SOAPPROG ---
SOAP Progress Note Assessment/Plan: Assessment: Appreciate General Surgery's involvement -- now POD2 s/p evacuation/debridement of umbilical subcutaneous abscess with apparent compromise of fascial stitches and placement of wound vac. Planning on back to OR this afternoon for vac change and assessment. I will continue to follow along. Subjective: NPO waiting for OR this afternoon. Had some sporadic chills yesterday evening, but wasn't aware that she spiked any fevers, never felt warm. Belly pain still well controlled. In good spirits. Objective: Vital Signs Temp Pulse Resp BP Pulse Ox 36.6 C 68 16 124/78 H 96 09/18/18 03:45 09/18/18 08:00 09/18/18 08:00 09/18/18 08:00 09/18/18 08:00 Laboratory Results 09/18/18 06:00 09/17/18 09/18/18 09/19/18 05:59 05:59 05:59 Intake Total 2600 Balance 2600 Physical Exam - Physical Exam General Appearance: alert, no apparent distress Abdomen: non-tender, soft, other (Vac still in place, no changes in erythema ( minimal)), No distended ICD10 Worksheet Patient Problems: Problems Problem Status Onset Pelvic abscess in female Acute Dermoid cyst Acute
[2018-09-18] MEDS ORDERED: LR 1,000 ML IV ONE (16:12)
[2018-09-18] MEDS ORDERED: MIDAZOLAM 2 MG/2 ML VIAL IVP ONE (16:43)
--- NOTE | 2018-09-18 16:43 | PDANEPAE ---
ANE History of Present Illness Abd abscess ANE Past Medical History - Cardiovascular History Hx Hypertension: No Hx Arrhythmias: No Hx Chest Pain: No Hx Coronary Artery / Peripheral Vascular Disease: No Hx CHF / Valvular Disease: No Hx Palpitations: No - Pulmonary History Hx COPD: No Hx Asthma/Reactive Airway Disease: Yes Hx Recent Upper Respiratory Infection: No Hx Oxygen in Use at Home: No Hx Sleep Apnea: No Sleep Apnea Screening Result - Last Documented: Negative - Neurologic History Hx Cerebrovascular Accident: No Hx Seizures: No Hx Dementia: No - Endocrine History Hx Diabetes: No - Renal History Hx Renal Disorders: No - Liver History Hx Hepatic Disorders: No - Neurological & Psychiatric Hx Hx Neurological and Psychiatric Disorders: No - Cancer History Hx Cancer: No Cancer History Comment: pre-cancerous cells removed from face - GI History Hx Gastrointestinal Disorders: Yes Gastrointestinal History Comment: Hx of H. Pylori, had reflux with but none since has resolved - Other Health History Other Health History: wears glasses. hearing loss in right ear. has pain left lower back r/t cyst - Chronic Pain History Chronic Pain: No - Surgical History Prior Surgeries: EGD ANE Review of Systems Review of Systems: - Exercise capacity METS (RN): 4 METS ANE Patient History - Allergies Allergies/Adverse Reactions: azithromycin Allergy (Verified 09/16/18 13:21) stomach cramping - Home Medications Home medications: home medication list seen and reviewed Home Medications: Acetaminophen [Tylenol ES 500 mg (*)] 500 mg PO DAILY PRN 09/16/18 [Last Taken Unknown] Albuterol [Proventil Inhaler HFA (*)] 1 puffs IH DAILY PRN 09/16/18 [Last Taken Unknown] Cephalexin [Keflex (*)] 500 mg PO QID 09/16/18 [Last Taken 09/16/18 12:00] Hydrocodone/APAP 5/325 [[place] 5/325 (*)] 1 tab PO Q4HRS PRN 09/16/18 [Last Taken 09/16/18 12:00] Ibuprofen [Motrin (*)] 600 mg PO DAILY PRN 09/16/18 [Last Taken 09/16/18 12:00] - NPO status NPO Status: no food or drink >8 hours NPO Since - Liquids (Date): 09/18/18 NPO Since - Liquids (Time): 08:00 NPO Since - Solids (Date): 09/18/18 NPO Since - Solids (Time): 08:00 - Anes Hx Anes Hx: no prior problems - Smoking Hx Smoking Status: Never smoked - Family Anes Hx Family Hx Anesthesia Complications: mother with severe nausea ANE Labs/Vital Signs - Labs Result Diagrams: 09/18/18 06:00 09/17/18 05:45 - Vital Signs Blood Pressure: 134/92 Heart Rate: 65 Respiratory Rate: 18 O2 Sat (%): 97 Height: 182.88 cm Weight: 97.522 kg ANE Physical Exam - Airway Neck exam: FROM Mallampati Score: Class 2 Mouth exam: normal dental/mouth exam - Pulmonary Pulmonary: no respiratory distress - Cardiovascular Cardiovascular: regular rate and rhythym - ASA Status ASA Status: II ANE Anesthesia Plan Anesthesia Plan: GA w LMA
[2018-09-18] MEDS ORDERED: PROPOFOL 200 MG/20 ML VIAL ONE (16:52)
[2018-09-18] MEDS ORDERED: fentaNYL 100 MCG/2 ML INJ ONE ×3 (16:52→18:34)
[2018-09-18] MEDS ORDERED: LIDOCAINE 2% 5 ML SDV ONE (16:52)
[2018-09-18] MEDS ORDERED: GLYCOPYRROLATE 0.2 MG/1 ML VIAL ONE (16:53)
[2018-09-18] MEDS ORDERED: METOCLOPRAMIDE 10 MG/2 ML VIAL ONE (16:53)
--- NOTE | 2018-09-18 17:52 | POSTANESTH ---
Post Anesthetic Evaluation Cardiovascular Status: Similar to Pre-Op Cond Respiratory Status: Similar to Pre-op Cond. Level of Consciousness/Mental Status: Alert and Oriented Pain Control: Adequate, Prn Tx Ordered Nausea/Vomiting Control: Adequate, Prn Tx Ordered Complications Possibly Related to Anesthesia: None Noted
[2018-09-18] MEDS ORDERED: KETOROLAC 30 MG/1 ML SDV ONE (17:53)
[2018-09-18] MEDS ORDERED: ONDANSETRON 4 MG/2 ML VIAL IVP PRN (17:53)
[2018-09-18] MEDS ORDERED: NALOXONE HCL 0.4 MG/ML INJ IVP PRN (17:53)
[2018-09-18] MEDS ORDERED: PROMETHAZINE HCL 25 MG/ML INJ IVP PRN (17:53)
[2018-09-18] MEDS ORDERED: HYDROmorphONE/DILAUDID 2 MG/ML INJ IVP PRN (17:53)
[2018-09-18] MEDS: fentaNYL 100 MCG/2 ML INJ IVP PRN ×2 (17:55→18:00)
--- NOTE | 2018-09-18 17:55 | POSTOPPROG ---
Post Op Note Date of Operation: 09/18/18 Surgeon: Rakesh Kong Anesthesia: GET(General Endotracheal) Pre-op Diagnosis: subcutaneous abscess at umbilicus s/p drainage and wound vac Post-op Diagnosis: subcutaneous abscess at umbilicus s/p drainage and wound vac Indication: subcutaneous abscess at umbilicus s/p drainage and wound vac Procedure: debridement and replacement of wound vac Findings: subcutaneous abscess at umbilicus s/p drainage and wound vac Inf/Abcess present in the surg proc area at time of surgery?: Yes Depth: Deep Incisional (Fascial) EBL: Minimal Total fluids administered: 500 Complications: none Drains: Wound Vac Specimen(s): none
--- NOTE | 2018-09-18 21:25 | GOP ---
DATE OF OPERATION: 09/18/2018 SURGEON: Rakesh Kong MD ANESTHESIA: General endotracheal. PREOPERATIVE DIAGNOSIS: Subcutaneous abscess at umbilicus, status post drainage with wound vacuum-as sisted closure placement. POSTOPERATIVE DIAGNOSIS: Subcutaneous abscess at umbilicus, status post drainage with wound vacuum-a ssisted closure placement. PROCEDURE PERFORMED: Debridement of wound and replacement of wound vacuum-assisted closure. This zachery hnically was an abscess, but it was fairly clean with minimal necrotic tissue. FINDINGS: Subcutaneous abscess at umbilicus, status post drainage with wound vacuum-assisted closure placement. SPECIMENS: None. ESTIMATED BLOOD LOSS: Minimal. INDICATIONS: Subcutaneous abscess at umbilicus, status post drainage with wound vacuum-assisted clos ure placement. DESCRIPTION OF PROCEDURE: The patient was placed on the operating table in the supine position. Aft er induction of adequate general endotracheal anesthesia, the wound VAC plastic was removed and the s ponge was left in place. The abdomen was carefully prepped. It was now draped. A surgical time-out was carried out. The wound VAC sponge was removed. The wound was measured. It was 9 cm deep. It was 1.5 cm in diameter. There was no purulent fluid per se identified. A minimal amount of necrotic tissue was debrided. Th e wound VAC sponge was placed. Note, this was smaller than the prior wound VAC sponge. The wound VA C plastic was positioned. The suction catheter was attached, and no air leak was detected. The dolores ent was transferred back to recovery in stable and satisfactory condition. TOTAL FLUIDS: 500 cc. COMPLICATIONS: None. /[id number]/MODL
[2018-09-19] MEDS: KETOROLAC 30 MG/1 ML SDV IVP SCH ×4 (00:18→18:22)
[2018-09-19] MEDS: ACETAMINOPHEN 500 MG TAB PO SCH ×3 (00:18→20:02)
[2018-09-19] MEDS: PIPERACILLIN/TAZO 4.5 GM/DEX 100 ML IV SCH ×4 (00:18→18:20)
[2018-09-19 06:22] LABS: PLATELET COUNT 427 10^3/uL (150-400)
[2018-09-19] MEDS: ENOXAPARIN 40 MG/0.4 ML SYR SC SCH (08:57)
--- NOTE | 2018-09-19 09:29 | SOAPPROG ---
SOAP Progress Note Assessment/Plan: POD#1 09/17/2018 Assessment: Doing quite well. Minimal wound vac out put, VSS, WBC down, Gram stain - mainly Gram + cocci consistent with skin source not GI Erythema resolved. Hungry and eating. Note fascia is open. Duplex scan negative for DVT. Plan: Wound vac change tomorrow POD#2 09/18/18 08:56 Assessment: C/o fatigue last PM but otherwise no complaints. Afebrile, VSS, Eating and moving bowels. WBC up to 14K Abdomen soft, not distended,+ BS Plan: Change wound vac today in OR for optimal visualization. Doubt that I will wish to colse fascial defect today When cultures results available will adjust antibiotics POD#1&3 09/19/18 09:23 Assessment: Doing quite well, WBC down, wound vac output minimal Plan: replace wound vac with JJ drain tomorrow and consider discharge post op. Subjective: I'm felling better Objective: Vital Signs Temp Pulse Resp BP Pulse Ox 36.8 C 44 L 16 106/58 L 95 09/19/18 05:30 09/19/18 05:30 09/19/18 05:30 09/19/18 05:30 09/19/18 05:30 Laboratory Results 09/19/18 06:05 09/18/18 09/19/18 09/20/18 05:59 05:59 05:59 Intake Total 2600 1400 Output Total 405 Balance 2600 995 - Time Spent With Patient Time Spent With Patient: 15 - Pending Discharge Pending Discharge Within 24 Hours: Yes Pending Discharge Date: 09/20/18 Pending Discharge Time: 11:00 Physical Exam - Physical Exam General Appearance: WD/WN, alert, no apparent distress Respiratory: lungs clear, normal breath sounds Cardiac/Chest: regular rate, rhythm Abdomen: normal bowel sounds, non-tender, soft, other (no erythema) Rectal: black stool Skin: normal color, warm/dry Neuro/Psych: no motor/sensory deficits, alert, normal mood/affect, oriented x 3 ICD10 Worksheet Patient Problems: Problems Problem Status Onset Pelvic abscess in female Acute Dermoid cyst Acute
--- NOTE | 2018-09-19 11:24 | SOAPPROG ---
SOAP Progress Note Assessment/Plan: Assessment: HD 4 with LSC site abscess - now much improved after second change of wound vac last noc on abx - WBCs great drop afebrile pain much improved - no narcs needed Plan: per Dr Kong, change wound vac again in am and hopefully d/c home 09/19/18 11:15 Subjective: Pt reports feeling so much better. minimal pain other than right after drsg change procedures. No n/v - eating reg diet. Amb fine. urinating fine. Having loose stools with anxiety. anxious about small area to left of umb incision that appears to pt and mom to be increasing in redness-- border marked. Objective: Vital Signs Temp Pulse Resp BP Pulse Ox 36.2 C 46 L 18 105/75 98 09/19/18 09:15 09/19/18 09:15 09/19/18 09:15 09/19/18 09:15 09/19/18 09:15 Laboratory Results 09/19/18 06:05 09/18/18 09/19/18 09/20/18 05:59 05:59 05:59 Intake Total 2600 1400 Output Total 405 Balance 2600 995 Physical Exam - Physical Exam General Appearance: obese Abdomen: non-tender, soft, other (small areas of erythema around umb - dramatically less than admit - sm sites marked - under wound vac drsg) Skin: normal color, warm/dry Extremities: non-tender, pedal edema (none) Neuro/Psych: alert, normal mood/affect ICD10 Worksheet Patient Problems: Problems Problem Status Onset Pelvic abscess in female Acute Dermoid cyst Acute
[2018-09-20] MEDS: KETOROLAC 30 MG/1 ML SDV IVP SCH ×3 (00:07→12:15)
[2018-09-20] MEDS: PIPERACILLIN/TAZO 4.5 GM/DEX 100 ML IV SCH ×2 (00:07→06:01)
[2018-09-20] MEDS: ACETAMINOPHEN 500 MG TAB PO SCH ×2 (04:04→10:15)
--- NOTE | 2018-09-20 07:51 | PDANEPAE ---
ANE History of Present Illness I and D of abdominal wound. ANE Past Medical History - Cardiovascular History Hx Hypertension: No Hx Arrhythmias: No Hx Chest Pain: No Hx Coronary Artery / Peripheral Vascular Disease: No Hx CHF / Valvular Disease: No Hx Palpitations: No - Pulmonary History Hx COPD: No Hx Asthma/Reactive Airway Disease: Yes Hx Recent Upper Respiratory Infection: No Hx Oxygen in Use at Home: No Hx Sleep Apnea: No Sleep Apnea Screening Result - Last Documented: Negative - Neurologic History Hx Cerebrovascular Accident: No Hx Seizures: No Hx Dementia: No - Endocrine History Hx Diabetes: No Obesity: moderate - Renal History Hx Renal Disorders: No - Liver History Hx Hepatic Disorders: No - Neurological & Psychiatric Hx Hx Neurological and Psychiatric Disorders: No - Cancer History Hx Cancer: No Cancer History Comment: 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 Pylori, had reflux with but none since has resolved - Other Health History Other Health History: wears glasses. hearing loss in right ear. has pain left lower back r/t cyst - Chronic Pain History Chronic Pain: No - Surgical History Prior Surgeries: EGD. Laparoscopic excision of dermoid cyst ANE Review of Systems Review of Systems: - Exercise capacity METS (RN): 4 METS ANE Patient History - Allergies Allergies/Adverse Reactions: azithromycin Allergy (Verified 09/16/18 13:21) stomach cramping - Home Medications Home Medications: Acetaminophen [Tylenol ES 500 mg (*)] 500 mg PO DAILY PRN 09/16/18 [Last Taken Unknown] Albuterol [Proventil Inhaler HFA (*)] 1 puffs IH DAILY PRN 09/16/18 [Last Taken Unknown] Cephalexin [Keflex (*)] 500 mg PO QID 09/16/18 [Last Taken 09/16/18 12:00] Hydrocodone/APAP 5/325 [[place] 5/325 (*)] 1 tab PO Q4HRS PRN 09/16/18 [Last Taken 09/16/18 12:00] Ibuprofen [Motrin (*)] 600 mg PO DAILY PRN 09/16/18 [Last Taken 09/16/18 12:00] - NPO status NPO Since - Liquids (Date): 09/20/18 NPO Since - Liquids (Time): 00:00 NPO Since - Solids (Date): 09/20/18 NPO Since - Solids (Time): 00:00 - Anes Hx Anes Hx: no prior problems - Smoking Hx Smoking Status: Never smoked - Alcohol Use Alcohol Use: Other (2 beers X 3 week) - Family Anes Hx Family Anes Hx: none (pt's mother has postop N/V) Family Hx Anesthesia Complications: mother with severe nausea ANE Labs/Vital Signs - Labs Result Diagrams: 09/20/18 06:05 09/17/18 05:45 - Vital Signs Blood Pressure: 119/79 Heart Rate: 57 Respiratory Rate: 16 O2 Sat (%): 98 Height: 182.88 cm Weight: 97.522 kg ANE Physical Exam - Airway Neck exam: FROM Mouth exam: normal dental/mouth exam - Pulmonary Pulmonary: clear to auscultation - Cardiovascular Cardiovascular: regular rate and rhythym - ASA Status ASA Status: II ANE Anesthesia Plan Anesthesia Plan: GA w LMA
[2018-09-20] MEDS ORDERED: MIDAZOLAM 2 MG/2 ML VIAL IVP ONE (07:52)
[2018-09-20] MEDS ORDERED: MIDAZOLAM 2 MG/2 ML VIAL ONE (07:55)
[2018-09-20] MEDS ORDERED: PROPOFOL 200 MG/20 ML VIAL ONE (07:56)
[2018-09-20] MEDS ORDERED: fentaNYL 100 MCG/2 ML INJ ONE ×2 (07:56→08:51)
[2018-09-20] MEDS ORDERED: DEXAMETHASONE 4 MG/ML VIAL ONE (07:57)
--- NOTE | 2018-09-20 08:01 | SOAPPROG ---
SOAP Progress Note Assessment/Plan: POD#1 09/17/2018 Assessment: Doing quite well. Minimal wound vac out put, VSS, WBC down, Gram stain - mainly Gram + cocci consistent with skin source not GI Erythema resolved. Hungry and eating. Note fascia is open. Duplex scan negative for DVT. Plan: Wound vac change tomorrow POD#2 09/18/18 08:56 Assessment: C/o fatigue last PM but otherwise no complaints. Afebrile, VSS, Eating and moving bowels. WBC up to 14K Abdomen soft, not distended,+ BS Plan: Change wound vac today in OR for optimal visualization. Doubt that I will wish to colse fascial defect today When cultures results available will adjust antibiotics POD#1&3 09/19/18 09:23 Assessment: Doing quite well, WBC down, wound vac output minimal Plan: replace wound vac with JJ drain tomorrow and consider discharge post op. POD#2&4 09/20/18 07:57 Assessment: Very little out wound vac Labs and VSS Cultures growing + cocci Plan: change wound vac to JJ Change to oral antibiotics post op Subjective: No complaints Objective: Vital Signs Temp Pulse Resp BP Pulse Ox 36.5 C 57 L 16 119/79 98 09/20/18 07:44 09/20/18 07:53 09/20/18 07:53 09/20/18 07:53 09/20/18 07:53 Laboratory Results 09/20/18 06:05 09/19/18 09/20/18 09/21/18 05:59 05:59 05:59 Intake Total 1400 200 Output Total 405 Balance 995 200 - Time Spent With Patient Time Spent With Patient: 15 - Pending Discharge Pending Discharge Within 24 Hours: Yes Pending Discharge Date: 09/21/18 Pending Discharge Time: 11:00 Physical Exam - Physical Exam General Appearance: WD/WN, alert, no apparent distress Respiratory: lungs clear, normal breath sounds Cardiac/Chest: regular rate, rhythm Abdomen: non-tender, soft Pelvic Exam: deferred Rectal: deferred Skin: normal color, warm/dry Extremities: normal range of motion Neuro/Psych: no motor/sensory deficits, alert, normal mood/affect, oriented x 3 ICD10 Worksheet Patient Problems: Problems Problem Status Onset Pelvic abscess in female Acute Dermoid cyst Acute
[2018-09-20] MEDS ORDERED: HYDROmorphONE/DILAUDID 2 MG TAB PO PRN (08:02)
[2018-09-20] MEDS ORDERED: ONDANSETRON 4 MG/2 ML VIAL ONE (08:17)
[2018-09-20] MEDS ORDERED: HYDROCODONE/APAP 5/325 TAB PO PRN (08:30)
[2018-09-20] MEDS ORDERED: ALBUTEROL 3 ML DEYVIAL IH PRN (08:30)
[2018-09-20] MEDS ORDERED: ONDANSETRON 4 MG/2 ML VIAL IVP PRN (08:30)
[2018-09-20] MEDS ORDERED: oxyCODONE IR 5 MG TAB PO PRN (08:30)
[2018-09-20] MEDS ORDERED: NALOXONE HCL 0.4 MG/ML INJ IVP PRN (08:30)
--- NOTE | 2018-09-20 08:39 | POSTOPPROG ---
Post Op Note Date of Operation: 09/20/18 Surgeon: Rakesh Kong Anesthesia: LMA Pre-op Diagnosis: post op wound infection Post-op Diagnosis: post op wound infection Indication: post op wound infection Procedure: wound vac removal/JJ placement/wound debridement/irrigation & closure Findings: post op wound infection Inf/Abcess present in the surg proc area at time of surgery?: No EBL: Minimal Total fluids administered: 750 Complications: none Drains: Roc Ernst Specimen(s): none
[2018-09-20] MEDS: fentaNYL 100 MCG/2 ML INJ IVP PRN ×2 (08:53→09:12)
--- NOTE | 2018-09-20 09:13 | GOP ---
DATE OF OPERATION: 09/20/2018 SURGEON: Rakesh Kong MD ANESTHESIA: General by laryngeal mask. PREOPERATIVE DIAGNOSIS: Postoperative wound infection. POSTOPERATIVE DIAGNOSIS: Postoperative wound infection. PROCEDURE PERFORMED: Wound vacuum-assisted closure removal, Roc-Ernst placement, wound debrideme nt with irrigation and closure. There is no active abscess at this time. FINDINGS: Postoperative wound infection. SPECIMENS: None. ESTIMATED BLOOD LOSS: Minimal. INDICATIONS: Postoperative wound infection. DESCRIPTION OF PROCEDURE: The patient was placed on the operating room table in supine position. Af ter induction of adequate general anesthesia, the wound VAC plastic and suction connector removed anthony ving the sponge in the wound. The abdomen was prepped and draped with Betadine. A surgical time-out was carried out and agreed to by all members of the operative team. The wound VAC sponge was removed. The wound was well irrigated. It is dramatically closing down in terms of its diameter. Its length is still approximately 9 cm. A JJ drain is placed into the wound. The vertical umbilical incision is closed with vertical mattress sutures of #3-0 nylon. The tails were left long to facilitate subsequent removal. JJ drain is sutured to the skin. Wound was cleaned . 2 x 2 was placed in the umbilicus. Tegaderm was positioned. The patient was transferred to [facility] in stable and satisfactory condition. FLUIDS ADMINISTERED: 750 cc. COMPLICATIONS: None. DRAINS: A JJ drain is placed into the base of the wound. /[id number]/MODL
[2018-09-20] MEDS: ENOXAPARIN 40 MG/0.4 ML SYR SC SCH (10:15)
--- NOTE | 2018-09-20 10:15 | POSTANESTH ---
Post Anesthetic Evaluation Cardiovascular Status: Normal, Stable Respiratory Status: Similar to Pre-op Cond. Level of Consciousness/Mental Status: Can Participate in Eval Pain Control: Adequate, Prn Tx Ordered Nausea/Vomiting Control: Adequate, Prn Tx Ordered Complications Possibly Related to Anesthesia: None Noted
--- NOTE | 2018-09-20 11:39 | SOAPPROG ---
SOAP Progress Note Assessment/Plan: Assessment: Back from the OR this AM after vac removal, subcutaneous drain placement. Sounds like will be able to dc home later today with oral antibiotics. Will discuss plan for f/u with General Surgery. Subjective: Feeling good - Happy to be closer to home. Denies F/C, pain well controlled. Objective: Vital Signs Temp Pulse Resp BP Pulse Ox 36.2 C 57 L 13 105/75 92 09/20/18 09:33 09/20/18 08:12 09/20/18 09:25 09/20/18 09:16 09/20/18 09:25 Laboratory Results 09/20/18 06:05 09/19/18 09/20/18 09/21/18 05:59 05:59 05:59 Intake Total 1400 200 850 Output Total 405 1 Balance 995 200 849 Laboratory Tests 09/17/18 09/18/18 09/19/18 05:45 06:00 06:05 WBC 12.84 H 14.97 H 9.57 H 09/20/18 06:05 WBC 8.94 Physical Exam - Physical Exam General Appearance: alert, no apparent distress Abdomen: non-tender, soft, other (Tegederm in place over incision, JJ with 10cc of SS drainage), No distended, No guarding ICD10 Worksheet Patient Problems: Problems Problem Status Onset Pelvic abscess in female Acute Dermoid cyst Acute
[2018-09-20] MEDS ORDERED: CEPHALEXIN 250 MG CAP PO SCH (12:00)
[2018-09-20 16:11] VITALS: BP 111/72
--- NOTE | 2018-09-20 17:38 | GDS ---
SURGERY: Drainage of abscess. CONDITION AT DISCHARGE: Improved. DISPOSITION: Home. DIET: Unrestricted. At discharge, her medications will include Tylenol 1000 mg every 8 hours, Keflex 250 mg every 6 hours for 4 days, and Dilaudid 2 to 4 mg every 4 hours p.r.n. severe pain. She is to continue her Proventil inhaler 1 puff daily as needed. She is to hold her home Motrin and Tylenol. She should not take her [place] or the higher dose cephalexin that she was previously prescribed. For 3 weeks she is to lift less than 10 pounds, shower only. She is to empty her JJ bulb whenever it is one third full and record the output. She will take a multivitamin with 100% of the [employer] of zinc, copper, and C. She is to watch for signs of infection: 1. Superficial redness, warmth, swelling, and tenderness. 2. Deep loss of appetite, fevers, chills, abdominal pain, and fatigue. She is to follow up with Dr. Raleigh Swain's office to see Dr. Swain, Dr. Vargas , or Dr. Calderón on Friday this week for JJ drain evaluation for possible removal. HOSPITAL COURSE: The patient was admitted and brought to the operating room. A large port track abscess was drained. She has a fascial defect, but that is contained at the base of the cavity by adherent omentum/intestine. It does not appear to communicate with the abdominal space. Wound was well irrigated, and wound VAC was placed. 48 hours later she was taken back to the OR for further debridement, irrigation, and replacement of a smaller wound VAC. Her wound was initially over an inch and a half in diameter and 9 cm deep. Most recent exam it is approximately 2 cm in diameter and 9 cm deep. A JJ drain is in place to further collapse the cavity and to facilitate home care. Her wound cultures grew gram-positive cocci in chains and pairs, also grew scant coccobacilli and anaerobes. This is presumed to be a skin contaminant that caused the infection. She has been eating well and moving her bowels, which argues against intraabdominal components. Copy requested to: Dr. Jordan /[id number]/MODL MTDD
== END 2018-09-20 15:40 | disposition home or self-care (01) | DRG 858 ==
LOC: INTOOBSV 15:17 → FOB 16:21 → OBSVTOIN 09-17 17:44
PROVIDERS: ADMIT Obstetrics & Gynecology; ATTEND Obstetrics & Gynecology
DX: T81.41XA Infection following a procedure, superficial incisional surgical site, initial encounter (principal); B96.89 Other specified bacterial agents as the cause of diseases classified elsewhere; E86.9 Volume depletion, unspecified; J45.909 Unspecified asthma, uncomplicated; K21.9 Gastro-esophageal reflux disease without esophagitis; E66.9 Obesity, unspecified; Z68.29 Body mass index [BMI] 29.0-29.9, adult; Z98.890 Other specified postprocedural states
CPT/HCPCS: 82435-PO; 82565-PO; 82947-PO; 84132-PO; 84295-PO; 84520-PO; 85014-PO; 96365; G0378; J1100; J1170; J1650; J1885; J2250; J2405; J2543; J2550; J2704; J2765; J3010; Q9967

== ENCOUNTER 2019-03-24 11:27 | Emergency (ER) | payer OTHER ==
[2019-03-24] MEDS ORDERED: NS 1,000 ML IV ONE (11:38)
[2019-03-24] MEDS ORDERED: PROMETHAZINE HCL 25 MG/ML INJ IVP ONE (11:38)
[2019-03-24] MEDS ORDERED: PANTOPRAZOLE SODIUM 40 MG VIAL IVP ONE (11:38)
--- NOTE | 2019-03-24 11:38 | EDPHY ---
H & P Stated Complaint: Epigastric pain with emesis for 30 hours. Source: Patient Exam Limitations: No limitations - Personal History LMP (Females 10-55): 1-7 Days Ago Current Tetanus Diphtheria and Acellular Pertussis (TDAP): Yes - Medical/Surgical History Hx Asthma: Yes Hx Chronic Respiratory Disease: No Hx Diabetes: No Hx Cardiac Disease: No Hx Renal Disease: No Hx Cirrhosis: No Hx Alcoholism: No Hx HIV/AIDS: No Hx Splenectomy or Spleen Trauma: No Other PMH: asthma, surgery for ovarian cyst 09/10/18. Gerd. - Social History Smoking Status: Never smoked Time Seen by Provider: 03/24/19 11:34 HPI/ROS: HPI: This is a 33-year-old female who presents with Chief Complaint: Epigastric pain with emesis for 30 hours. Location: Epigastric Quality: Burning sharp pain Duration: 24-36 hr Signs and Symptoms: no fever, + nausea, + vomiting, no hematemesis, no blood in stool, no abdominal bloating, no diarrhea, no back pain, no urinary symptoms, no vaginal bleeding/discharge, no indigestion, no chest pain, no shortness of breath Timing: Acute, intermittent episodes Severity: Moderate Context: Patient complains of sudden onset of nausea accompanied by epigastric burning sharp pain with intermittent episodes of vomiting. This started approximately 24-36 hr ago and has occurred approximately 5-6 times per day. At first the patient thought she ate something bad. Takes ibuprofen 2-3 times per week. Social alcohol user. Having normal bowel movements. Denies diarrhea , fever, urinary symptoms, chest pain, shortness of breath, hematemesis, blood in stool. Notes intolerance to fatty, fried or large meals. Last menstrual period ended 4 days ago. Modifying Factors: [place] with no relief Comment: ROS: A comprehensive 10 system review of systems is otherwise negative aside from elements mentioned in the history of present illness. MEDICAL/SURGICAL/SOCIAL HISTORY: Medical history: History of ovarian dermoid cyst, pelvic abscess, GERD, asthma. Last menstrual period ended 4 days ago. Surgical history: Ovarian cyst removal Social history: Employed at [employer]. . Nonsmoker. Drinks alcohol socially. Denies drug use. Family history noncontributory. CONSTITUTIONAL: Extremely well-appearing, talkative, adult white female, awake and alert, no obvious distress HEENT: Atraumatic and normocephalic, PERRL, EOMI. Nares patent; no rhinorrhea; no nasal mucosal edema. Tympanic membranes clear. Oropharynx clear, no exudate and moist pink mucosa. Airway patent. No lymphadenopathy. No meningismus. Cardiovascular: Normal S1/S2, regular rate, regular rhythm, without murmur rub or gallop. PULMONARY/CHEST: Symmetrical and nontender. Clear to auscultation bilaterally. Good air movement. No accessory muscle usage. ABDOMEN: Soft, nondistended, moderate epigastric tenderness, mild right upper quadrant tenderness, no rebound, no guarding, no peritoneal signs, no masses or organomegaly. No CVAT. EXTREMITIES: 2/2 pulses, strength 5/5, no deformities, no clubbing, no cyanosis or edema. NEUROLOGICAL: no focal neuro deficits. GCS 15. SKIN: Warm and dry, no erythema. no rash. Good capillary refill. (Ju Alvarado) Constitutional: Initial Vital Signs Temperature (C) 36.7 C 03/24/19 11:27 Heart Rate 81 03/24/19 11:27 Respiratory Rate 18 03/24/19 11:27 Blood Pressure 115/79 03/24/19 11:27 O2 Sat (%) 96 03/24/19 11:27 O2 Delivery Mode Room Air Allergies/Adverse Reactions: azithromycin Allergy (Verified 09/16/18 13:21) stomach cramping Home Medications: Medication Instructions Recorded Albuterol [Proventil Inhaler HFA 1 puffs IH DAILY PRN 09/16/18 (*)] Acetaminophen [Tylenol ES 500 mg 1,000 mg PO Q8@0000,0800,1600 tab 09/20/18 (*)] Ondansetron Odt [Zofran Odt 4 mg 4 mg PO Q4 PRN #12 tab 03/24/19 (*)] Medical Decision Making - Diagnostics Imaging Results: Imaging Impressions Abdomen Ultrasound 03/24/19 11:38 Impression: No cholelithiasis or biliary ductal dilation. Findings and recommendations discussed with Emergency Department physicianJu at 12:52 hour, 03/24/2019. Final report concurs with initial preliminary interpretation. ED Course/Re-evaluation: Read as stable upon arrival. No systemic signs to meet SIRS criteria. IV access, laboratory studies, right upper quadrant ultrasound ordered Given 1 L normal saline, IV Protonix 40 mg and IV promethazine 12.5 mg 1300: Called by Dr. Yi grimaldo who reports abdominal ultrasound shows no signs gallbladder stones, gallbladder sludge, free fluid, aortic aneurysm, pancreatitis, common bile duct dilatation. It is essentially unremarkable. 1328: Laboratory studies reviewed and No signs of leukocytosis/anemia/platelet dysfunction/YESICA/elevated LFTs/electrolyte imbalance/pancreatitis/. Suspect this is GERD versus gastritis. Advised supportive care, Zofran p.r.n, Nexium 40 mg every morning and gastroenterology follow-up p.r.n. This patient was seen under the supervision of my secondary supervising physician. I evaluated and cared for this patient independently. (Ju Alvarado) I did not see this patient while she was in the emergency department. However her care was discussed with the PA while the patient was in the department. I agree with treatment plan and management (Reginald Young) Differential Diagnosis: Abdominal pain including but not limited to appendicitis, cholecystitis, gastritis and urinary tract infection. (Ju Alvarado) - Data Points Laboratory Results: Laboratory Results 03/24/19 12:48 03/24/19 12:48 03/24/19 03/24/19 03/24/19 12:48 12:48 12:48 WBC 6.62 10^3/uL 10^3/uL (3.80-9.50) RBC 5.04 10^6/uL 10^6/uL (4.18-5.33) Hgb 13.6 g/dL g/dL (12.6-16.3) Hct 42.3 % % (38.0-47.0) MCV 83.9 fL fL (81.5-99.8) MCH 27.0 pg L pg (27.9-34.1) MCHC 32.2 g/dL L g/dL (32.4-36.7) RDW 15.4 % H % (11.5-15.2) Plt Count 432 10^3/uL H 10^3/uL (150-400) MPV 8.6 fL L fL (8.7-11.7) Neut % (Auto) 67.0 % % (39.3-74.2) Lymph % (Auto) 21.6 % % (15.0-45.0) Bartholomew % (Auto) 8.9 % % (4.5-13.0) Eos % (Auto) 1.7 % % (0.6-7.6) Baso % (Auto) 0.6 % % (0.3-1.7) Nucleat RBC Rel Count 0.0 % % (0.0-0.2) Absolute Neuts (auto) 4.44 10^3/uL 10^3/uL (1.70-6.50) Absolute Lymphs (auto) 1.43 10^3/uL 10^3/uL (1.00-3.00) Absolute Monos (auto) 0.59 10^3/uL 10^3/uL (0.30-0.80) Absolute Eos (auto) 0.11 10^3/uL 10^3/uL (0.03-0.40) Absolute Basos (auto) 0.04 10^3/uL 10^3/uL (0.02-0.10) Absolute Nucleated RBC 0.00 10^3/uL 10^3/uL (0-0.01) Immature Gran % 0.2 % % (0.0-1.1) Immature Gran # 0.01 10^3/uL 10^3/uL (0.00-0.10) Sodium 140 mEq/L mEq/L (135-145) Potassium 4.2 mEq/L mEq/L (3.5-5.2) Chloride 101 mEq/L mEq/L (97-110) Carbon Dioxide 25 mEq/l mEq/l (22-31) Anion Gap 14 mEq/L mEq/L (6-14) BUN 13 mg/dL mg/dL (7-23) Creatinine 0.7 mg/dL mg/dL (0.6-1.0) Estimated GFR > 60 Glucose 83 mg/dL mg/dL (70-100) Calcium 10.2 mg/dL mg/dL (8.5-10.4) Total Bilirubin 0.2 mg/dL mg/dL (0.1-1.4) Conjugated Bilirubin 0.0 mg/dL mg/dL (0.0-0.5) Unconjugated Bilirubin 0.2 mg/dL mg/dL (0.0-1.1) AST 20 IU/L IU/L (14-46) ALT 32 IU/L IU/L (9-52) Alkaline Phosphatase 50 IU/L IU/L (38-126) Total Protein 8.1 g/dL g/dL (6.3-8.2) Albumin 5.0 g/dL g/dL (3.5-5.0) Lipase 84 IU/L IU/L (23-300) Beta HCG, Qual NEGATIVE Medications Given: Discontinued Medications Sodium Chloride (Ns) 1,000 mls @ 0 mls/hr IV EDNOW ONE; Wide Open PRN Reason: Protocol Stop: 03/24/19 11:39 Last Admin: 03/24/19 12:06 Dose: 1,000 mls Pantoprazole Sodium (Protonix) 40 mg IVP ONCE ONE Stop: 03/24/19 11:39 Last Admin: 03/24/19 12:13 Dose: 40 mg Promethazine HCl (Phenergan) 12.5 mg IVP EDNOW ONE Stop: 03/24/19 11:39 Last Admin: 03/24/19 12:08 Dose: 12.5 mg Departure - Departure Disposition: Home, Routine, Self-Care Clinical Impression: History of gastroesophageal reflux (GERD) Gastritis Qualifiers: Gastritis type: unspecified gastritis Chronicity: acute Gastritis bleeding: without bleeding Qualified Code(s): K29.00 - Acute gastritis without bleeding Condition: Good Instructions: Esomeprazole (By mouth), Gastritis (ED), Diet for Stomach Ulcers and Gastritis (ED), Upper Endoscopy (DC) Additional Instructions: Consume a minimum of 8-10 glasses of water or electrolyte fluid replacement drinks that include Gatorade, Powerade, Pedialyte. Eat a bland diet for the next 48 hours and then slowly advance as tolerated to a GERD/gastritis diet. Take Zofran 1 tab every 4 hours as needed for nausea, vomiting. Take [id number] Nexium 40 mg every morning until symptoms improve or seen by Gastroenterology. Follow-up with Gastroenterology in 1-2 weeks if symptoms persist to evaluate for candidacy for EGD. Referrals: Arabella Shelton MD [Primary Care Provider] - As per Instructions Chang Trevino MD [Medical Doctor] - As per Instructions Prescriptions: Ondansetron Odt [Zofran Odt 4 mg (*)] 4 mg PO Q4 PRN #12 tab PRN Reason: Nausea/Vomiting, Use 1st
[2019-03-24 12:57] LABS: PLATELET COUNT 432 10^3/uL (150-400)
[2019-03-24 13:53] VITALS: BP 108/75
== END 2019-03-24 13:55 | disposition home or self-care (01) ==
DX: K29.00 Acute gastritis without bleeding (principal); K21.9 Gastro-esophageal reflux disease without esophagitis; E86.9 Volume depletion, unspecified
CPT/HCPCS: 96374; J2550